=== PATIENT | female | born 1965 | race African-American/Black ===

== ENCOUNTER 2019-01-24 11:28 | Emergency (ER) | payer OTHER ==
[~2019-01-24] VITALS: Ht 165.1 cm; Wt 90.9 kg
[~2019-01-24 11:28] MED LIST: LISI10TA5 PO
[2019-01-24] MEDS ORDERED: IBUPROFEN 600MG TABLET PO ONE (12:45)
[2019-01-24] MEDS ORDERED: CLONIDINE 0.1MG TABLET PO ONE ×2 (12:45→14:00)
[2019-01-24 15:26] VITALS: BP 134/101
== END 2019-01-24 16:46 | disposition home or self-care (01) ==
LOC: ER 11:28
DX: I10 Essential (primary) hypertension (principal)
CPT/HCPCS: 82542; 99284